=== PATIENT | male | born 1955 | race Caucasian/White ===

== ENCOUNTER 2021-02-12 11:43 | Observation (INO) ==
[2021-02-12 14:06] LABS: Basophils % 0.2 % (0.0-0.8); Eosinophils # 0.1 10*3/uL (0.0-0.87); Eosinophils % 1.5 % (0.00-10.9); Hematocrit 45.2 VOL% (42.0-52.0); Hemoglobin 14.4 GM/DL (14.0-18.0); Lymphocytes # 1.6 10*3/uL (1.4-4.0); Lymphocytes % 25.2 % (21.2-54.2); Mean Corpuscular HGB Conc 31.9 GM/DL (32-36); Mean Corpuscular Volume 89.9 FL (87-102); Mean Platelet Volume 9.4 FL (9.6-12.0); Monocytes % 6.9 % (1.7-12.7); Neutrophils % 66.2 % (38.7-73.9); Platelet Count 119 T/CUMM (130-400); Red Blood Count 5.03 MC/CUMM (3.8-5.5); White Blood Count 6.2 T/CUMM (4-12)
[2021-02-12 14:22] LABS: Calcium 12.7 MG/DL (8.5-10.1); Osmolality,Calculated 277.4 MOS/KG (273-304); Potassium 4.1 MMOL/L (3.5-5.1)
[2021-02-12] MEDS ORDERED: ENOXAPARIN 100 MG/ML SYRINGE SUBCUT STA (16:54)
[2021-02-12] MEDS ORDERED: GLUCAGON 1 MG VIAL IM PRN (16:58)
[2021-02-12] MEDS ORDERED: DOCUSATE SODIUM 100 MG CAPSULE PO PRN (16:58)
[2021-02-12] MEDS ORDERED: ONDANSETRON 4 MG/2 ML VIAL IV PRN (16:58)
[2021-02-12] MEDS ORDERED: DEXTROSE 50% 25 GM/50 ML VIAL IV PRN (16:58)
[2021-02-12] MEDS ORDERED: ALBUTEROL/IPRATROPIUM 3 ML NEB RESP TX PRN (16:58)
[2021-02-12] MEDS ORDERED: ACETAMINOPHEN 325 MG TABLET PO PRN (16:58)
[2021-02-13 05:25] LABS: Basophils % 0.3 % (0.0-0.8); Eosinophils # 0.2 10*3/uL (0.0-0.87); Eosinophils % 2.9 % (0.00-10.9); Hematocrit 41.1 VOL% (42.0-52.0); Immature Granulocytes % 0.3 %; Immature Granulocytes Absolute 0.02 #; Lymphocytes # 1.9 10*3/uL (1.4-4.0); Lymphocytes % 32.1 % (21.2-54.2); Mean Corpuscular HGB Conc 31.6 GM/DL (32-36); Mean Corpuscular Volume 89.3 FL (87-102); Mean Platelet Volume 9.7 FL (9.6-12.0); Monocytes % 6.4 % (1.7-12.7); Platelet Count 140 T/CUMM (130-400); Red Cell Distribution Width 14.9 % (9.3-17.3); White Blood Count 5.8 T/CUMM (4-12)
[2021-02-13 05:39] LABS: Calcium 12.5 MG/DL (8.5-10.1); Osmolality,Calculated 278.3 MOS/KG (273-304); Potassium 3.8 MMOL/L (3.5-5.1)
[2021-02-13 05:49] LABS: Hypochromasia 1+; Microcytosis 1+; Ovalocytes Slight
[2021-02-13 05:50] LABS: Platelet Estimate Adequate
[2021-02-13] MEDS: PANTOPRAZOLE 40 MG TABLET PO SCH (09:31)
[2021-02-13] MEDS: APIXABAN 5 MG TABLET PO SCH ×2 (09:31→20:29)
[2021-02-13] MEDS ORDERED: hydrALAZINE 20 MG/1 ML VIAL IV PRN (14:42)
[2021-02-13 23:29] LABS: Bacteria,Urine Few /HPF (Few); Bilirubin,Urine Negative (Negative); Blood, Urine Small mg/dL (Negative); Glucose,Urine (UA) Negative (Negative); Ketones,Urine Negative (Negative); Mucus,Urine Occasional /LPF (Occasional); Nitrite,Urine Negative (Negative); Protein,Urine Negative; RBC,Urine 6 /HPF (0-4); Squamous Epithelial Cell,Urine Occasional /HPF (0-10); Urine Appearance CLOUDY (Clear); Urine Color Yellow (Yellow); Urine Specific Gravity 1.008 (1.001-1.035); Urine Urobilinogen < 2.0 EU/DL (0.2-1.0)
[2021-02-14 05:17] LABS: Basophils % 0.2 % (0.0-0.8); Eosinophils # 0.1 10*3/uL (0.0-0.87); Eosinophils % 2.4 % (0.00-10.9); Hematocrit 43.2 VOL% (42.0-52.0); Hemoglobin 13.8 GM/DL (14.0-18.0); Immature Granulocytes % 0.2 %; Immature Granulocytes Absolute 0.01 #; Lymphocytes # 1.6 10*3/uL (1.4-4.0); Lymphocytes % 34.7 % (21.2-54.2); Mean Corpuscular HGB Conc 31.9 GM/DL (32-36); Mean Corpuscular Volume 90.8 FL (87-102); Mean Platelet Volume 9.5 FL (9.6-12.0); Monocytes % 6.3 % (1.7-12.7); Neutrophils % 56.2 % (38.7-73.9); Platelet Count 148 T/CUMM (130-400); Red Blood Count 4.76 MC/CUMM (3.8-5.5); Red Cell Distribution Width 14.5 % (9.3-17.3); White Blood Count 4.6 T/CUMM (4-12)
[2021-02-14 05:49] LABS: Potassium 4.4 MMOL/L (3.5-5.1)
[2021-02-14] MEDS: APIXABAN 5 MG TABLET PO SCH ×2 (09:36→22:05)
[2021-02-14] MEDS: cefTRIAXone 2,000 MG in SODIUM CHLORIDE 0.9% 100 ML IV SCH (09:36)
[2021-02-14] MEDS: PANTOPRAZOLE 40 MG TABLET PO SCH (09:36)
[2021-02-14 13:06] LABS: ABG Base Excess 4.5 MMOL/L (-2.5-2.5); ABG HCO3 28.3 MMOL/L (20-26); ABG PCO2 67.1 MM HG (35-48); ABG PH 7.307 (7.35-7.45); ABG PO2 65.1 MM HG (80-95); ABG TCO2 29.4 MMOL/L (23-27)
[2021-02-15 05:01] LABS: Basophils % 0.4 % (0.0-0.8); Eosinophils # 0.2 10*3/uL (0.0-0.87); Eosinophils % 3.4 % (0.00-10.9); Hematocrit 42.8 VOL% (42.0-52.0); Hemoglobin 13.4 GM/DL (14.0-18.0); Immature Granulocytes % 0.2 %; Immature Granulocytes Absolute 0.01 #; Lymphocytes # 1.8 10*3/uL (1.4-4.0); Lymphocytes % 37.9 % (21.2-54.2); Mean Corpuscular HGB Conc 31.3 GM/DL (32-36); Mean Corpuscular Volume 90.7 FL (87-102); Mean Platelet Volume 9.5 FL (9.6-12.0); Monocytes % 6.7 % (1.7-12.7); Neutrophils % 51.4 % (38.7-73.9); Platelet Count 147 T/CUMM (130-400); Red Blood Count 4.72 MC/CUMM (3.8-5.5); Red Cell Distribution Width 14.6 % (9.3-17.3); White Blood Count 4.8 T/CUMM (4-12)
[2021-02-15 05:19] LABS: Calcium 12.1 MG/DL (8.5-10.1); Osmolality,Calculated 282.1 MOS/KG (273-304); Potassium 4.7 MMOL/L (3.5-5.1)
[2021-02-15] MEDS: APIXABAN 5 MG TABLET PO SCH (09:09)
[2021-02-15] MEDS: PANTOPRAZOLE 40 MG TABLET PO SCH (09:09)
[2021-02-15] MEDS: cefTRIAXone 2,000 MG in SODIUM CHLORIDE 0.9% 100 ML IV SCH (09:10)
[2021-02-15 11:58] VITALS: BP 151/83
== END 2021-02-15 16:30 | disposition home or self-care (01) ==
LOC: EDUNIT# → EDBD → N.ED 11:43 → N.EDINP 11:43 → N.4E 21:10
PROVIDERS: ADMIT Internal Medicine; ATTEND Internal Medicine